=== PATIENT | male | born 1995 | race Hispanic/Latino ===

== ENCOUNTER → 2016-09-06 | Outpatient (CLI) | payer OTHER ==
--- NOTE | 2016-09-06 14:31 | REP ---
BONE SCAN: FACIAL BONES: Following the intravenous administration of 21.9 mCi of technetium 99m MDP, the patient's facial region is imaged in multiple projections. There is asymmetric increased uptake in the region of the left mandibular condyle. Otherwise facial bone uptake is symmetrical and unremarkable. No abnormal uptake is seen in the skull. IMPRESSION: Focal increased uptake noted in the region of the left mandibular condyle. Signed by Gaston Ferrer MD 09/06/2016 08:10 P
== END ==
LOC: M RAD 08:39
PROVIDERS: ATTEND Dentist
DX: M26.9 Dentofacial anomaly, unspecified (principal)